=== PATIENT | female | born 1965 | race American Indian/Alaskan Native ===

== ENCOUNTER 2017-01-12 09:02 | Outpatient (CLI) | payer OTHER ==
--- NOTE | 2017-01-12 09:36 | XRay Report ---
CHEST 2 VIEWS INDICATION: Upper respiratory infection, smoker. COMPARISON: None similar. FINDINGS: PA and lateral chest radiographs demonstrate normal cardiomediastinal silhouette. Clear lungs. Intact bones. CONCLUSION: No acute disease in the chest. Thank you for the opportunity to participate in this patient's care.
== END 2017-01-12 09:03 | disposition home or self-care (01) ==
LOC: XRAY 09:02
PROVIDERS: ATTEND Family Medicine
DX: J06.9 Acute upper respiratory infection, unspecified (principal)
CPT/HCPCS: 71020

== ENCOUNTER 2017-02-24 15:38 | Outpatient (CLI) | payer OTHER ==
--- NOTE | 2017-02-25 08:33 | XRay Report ---
AP and lateral soft tissue the neck. History: Neck pain. Findings: The soft tissues are normal. There is narrowing of the disc spaces in the mid and lower cervical spine, most pronounced at C5-6 and C6-7. Mild anterior hypertrophic changes are noted. There no fractures or subluxations. Impression: Multilevel spondylosis. No soft tissue abnormalities.
--- NOTE | 2017-02-25 08:49 | XRay Report ---
AP lateral cervical spine. History: Pain. Findings: There is straightening of the lordotic curvature. Narrowing of the disc spaces is seen at C4-5 through C6-7 with minimal anterior hypertrophic changes. There is no prevertebral soft tissue edema. The odontoid is intact. Impression: No acute findings. Multilevel spondylosis.
--- NOTE | 2017-02-25 08:50 | XRay Report ---
LEFT SHOULDER: History: Left shoulder pain. Routine views demonstrate normal bony and soft tissue structures with normal joint alignment of the shoulder. IMPRESSION: Normal study.
== END 2017-02-24 15:39 | disposition home or self-care (01) ==
LOC: XRAY 15:38
PROVIDERS: ATTEND Family Medicine
DX: M47.812 Spondylosis without myelopathy or radiculopathy, cervical region (principal); M43.8X2 Other specified deforming dorsopathies, cervical region; M25.512 Pain in left shoulder
CPT/HCPCS: 70360; 72040

== ENCOUNTER 2019-04-26 16:09 | Emergency (ER) | payer OTHER ==
[2019-04-26 16:27] VITALS: BP 147/84
--- NOTE | 2019-04-26 16:27 | Event Note ---
ED Screening Note ED Screening Note: L ARM PAIN AND HAND SWELLING CIG PSH BREAST HYSTERECTOMY DAILY MEDS NONE POST MENOPAUSAL NO CP NO SOB NO TRAUMA NO NECK PAIN This initial assessment/diagnostic orders/clinical plan/treatment(s) is/are subject to change based on patients health status, clinical progression and re- assessment by fellow clinical providers in the ED. Further treatment and workup at subsequent clinical providers discretion. Patient/guardian urged not to elope from the ED as their condition may be serious if not clinically assessed and managed. Initial orders include:
--- NOTE | 2019-04-26 17:34 | XRay Report ---
LEFT HAND 4 VIEWS INDICATION / CLINICAL INFORMATION: Left hand pain and swelling. COMPARISON: None available. FINDINGS: BONES / JOINT(S): There is no evidence of fracture, dislocation or destructive lesion. No significant arthritis. SOFT TISSUES: There is mild generalized soft tissue swelling involving the middle finger. I do not id entify a radiopaque foreign body. ADDITIONAL FINDINGS: None. IMPRESSION: Generalized soft tissue swelling involving the middle finger without acute osseous abnorm ality. Signer Name: Alonzo Castrejon MD Signed: 04/26/2019 5:30 PM Workstation Name: [id number]
--- NOTE | 2019-04-26 17:46 | Emergency Department Report ---
ED Upper Extremity Inj HPI - General Chief Complaint: Extremity Problem,Nontraumatic Stated Complaint: LT HAND SWOLLEN Time Seen by Provider: 04/26/19 16:26 Source: patient Mode of arrival: Ambulatory Limitations: No Limitations - History of Present Illness Initial Comments: This is a 53-year-old male nontoxic, well nourished in appearance, no acute sig ns of distress presents to the ED with c/o of left 3rd finger pain and some swelling. Patient denies any trauma. Patient denies any numbness, tingling, fever, chills, nausea, vomiting, chest pain, shortness of breath, headache, stiff neck. Patient denies any joint swelling or joint redness. Patient denies decreased range of motion. Patient denies any allergies or significant past medical history. -: days(s) Other Extremity Injury: Fingers: Left Other Injuries: none Severity scale (0 -10): 8 Improves With: immobilization Worsens With: movement of extremity Associated Symptoms: denies other symptoms. denies: weakness, numbness, neck pain, suspects foreign body, nausea/vomiting, heard/felt popping sensat - Related Data Home Medications Medication Instructions Recorded Confirmed Last Taken PARoxetine MESYLATE [Brisdelle] 7.5 mg PO DAILY 11/06/14 11/14/14 11/12/14 Previous Rx's Medication Instructions Recorded Last Taken Type HYDROcodone/APAP 5-325 [Cecil 1 each PO Q6HR PRN #15 tablet 04/03/14 07/10/14 Rx 5/325 mg] Ibuprofen [Motrin 800 MG tab] 800 mg PO Q8H PRN #15 tablet 04/03/14 07/10/14 Rx Ibuprofen [Motrin] 600 mg PO Q6H PRN #30 tablet 11/15/14 Unknown Rx oxyCODONE /ACETAMINOPHEN [Percocet 2 tab PO Q4H PRN #30 tablet 11/15/14 Unknown Rx 5/325] PARoxetine MESYLATE [Brisdelle] 7.5 mg PO QDAY #30 capsule 11/16/14 Unknown Rx traMADol [Ultram 50 MG tab] 50 mg PO Q6HR PRN #45 tablet 11/16/14 Unknown Rx Acetaminophen/Codeine [Tylenol 1 tab PO Q6H PRN #12 tab 04/26/19 Unknown Rx /Codeine # 3 tab] Clindamycin [Clindamycin CAP] 300 mg PO Q8H #21 cap 04/26/19 Unknown Rx Naproxen [Naprosyn] 500 mg PO Q8H PRN #20 tablet 04/26/19 Unknown Rx Allergies Allergy/AdvReac Type Severity Reaction Status Date / Time No Known Allergies Allergy Verified 11/06/14 11:31 ED Review of Systems ROS: Stated complaint: LT HAND SWOLLEN Other details as noted in HPI Constitutional: denies: chills, fever Eyes: denies: eye pain, eye discharge, vision change ENT: denies: ear pain, throat pain Respiratory: denies: cough, shortness of breath, wheezing Cardiovascular: denies: chest pain, palpitations Endocrine: no symptoms reported Gastrointestinal: denies: abdominal pain, nausea, diarrhea Genitourinary: denies: urgency, dysuria, discharge Musculoskeletal: denies: back pain, joint swelling, arthralgia Skin: denies: rash, lesions Neurological: denies: headache, weakness, paresthesias Psychiatric: denies: anxiety, depression Hematological/Lymphatic: denies: easy bleeding, easy bruising ED Past Medical Hx - Past Medical History Previous Medical History?: No Hx Hypertension: No Hx Congestive Heart Failure: No Hx Diabetes: No Hx Asthma: No Hx COPD: No - Surgical History Past Surgical History?: Yes Hx Breast Surgery: Yes Additional Surgical History: Hysterectomy - Social History Smoking Status: Current Every Day Smoker Substance Use Type: Alcohol - Medications Home Medications: Home Medications Medication Instructions Recorded Confirmed Last Taken Type HYDROcodone/APAP 5-325 [Cecil 1 each PO Q6HR PRN #15 tablet 04/03/14 11/14/14 07/10/14 Rx 5/325 mg] Ibuprofen [Motrin 800 MG tab] 800 mg PO Q8H PRN #15 tablet 04/03/14 11/14/14 07/10/14 Rx PARoxetine MESYLATE [Brisdelle] 7.5 mg PO DAILY 11/06/14 11/14/14 11/12/14 History Ibuprofen [Motrin] 600 mg PO Q6H PRN #30 tablet 11/15/14 Unknown Rx oxyCODONE /ACETAMINOPHEN [Percocet 2 tab PO Q4H PRN #30 tablet 11/15/14 Unknown Rx 5/325] PARoxetine MESYLATE [Brisdelle] 7.5 mg PO QDAY #30 capsule 11/16/14 Unknown Rx traMADol [Ultram 50 MG tab] 50 mg PO Q6HR PRN #45 tablet 11/16/14 Unknown Rx Acetaminophen/Codeine [Tylenol 1 tab PO Q6H PRN #12 tab 04/26/19 Unknown Rx /Codeine # 3 tab] Clindamycin [Clindamycin CAP] 300 mg PO Q8H #21 cap 04/26/19 Unknown Rx Naproxen [Naprosyn] 500 mg PO Q8H PRN #20 tablet 04/26/19 Unknown Rx ED Physical Exam - General Limitations: No Limitations General appearance: alert, in no apparent distress - Head Head exam: Present: atraumatic, normocephalic - Extremities Exam Extremities exam: Present: normal inspection, full ROM, tenderness, normal capillary refill. Absent: joint swelling - Expanded Upper Extremity Exam Left General: Present: normal inspection Shoulder Exam: Present: normal inspection, full ROM. Absent: tenderness, swelling Upper Arm exam: Present: normal inspection, full ROM. Absent: tenderness, swelling Elbow exam: Present: normal inspection, full ROM. Absent: tenderness, swelling Forearm Wrist exam: Present: normal inspection, full ROM. Absent: tenderness, swelling Hand Wrist exam: Present: normal inspection, full ROM, tenderness, swelling, erythema. Absent: abrasion, laceration, ecchymosis, deformity, crepidus, dislocation, amputation, nail avulsion, subungual hematoma Vascular: Present: vascular compromise, normal capillary refill - Back Exam Back exam: Present: normal inspection, full ROM - Neurological Exam Neurological exam: Present: alert, oriented X3 - Psychiatric Psychiatric exam: Present: normal affect, normal mood - Skin Skin exam: Present: warm, dry, intact, normal color. Absent: rash - Other Other exam information: no joint stiffness. no joint pain. no joint swelling. no redness in that overlies the tendon. no trigger finger. ED Course Vital Signs 04/26/19 16:25 Temperature 97.4 F L Pulse Rate 74 Respiratory 15 Rate Blood Pressure 147/84 [Right] O2 Sat by Pulse 99 Oximetry - Reevaluation(s) Reevaluation #1: 04/26/19 17:46 Patient is speaking in full sentences with no signs of distress noted. ED Medical Decision Making - Medical Decision Making This is a 53-year-old female that presents with cellulitis. Patient is stable and was examined by me. There is no induration, fluctuance. No signs of abscess formation. There are no signs of tenosynovitis. I will discharge patient with clindamycin. Patient also has received information on tenosynovitis and to observe symptoms of symptoms does present and to return to emergency room as is possible. Vital signs are stable. Patient was referred to Follow-up with a Orthopedic doctor in 2 days or if symptoms worsen and continue return to emergency room as soon as possible. At time of discharge, the patient does not seem toxic or ill in appearance. No acute signs of distress noted. Patient agrees to discharge treatment plan of care. No further questions noted by the patient. Critical care attestation.: If time is entered above; I have spent that time in minutes in the direct care of this critically ill patient, excluding procedure time. ED Disposition Clinical Impression: Cellulitis of left middle finger Disposition: [id number] TO HOME OR SELFCARE Is pt being admited?: No Does the pt Need Aspirin: No Condition: Stable Instructions: Acetaminophen/Codeine (By mouth), Cellulitis (ED), Tenosynovitis (ED) Additional Instructions: Follow-up with a Orthopedic doctor in 2 days or if symptoms worsen and continue return to emergency room as soon as possible. Do not operate any machinery while taking Tylenol with codeine as this may cause drowsiness. Prescriptions: Clindamycin [Clindamycin CAP] 300 mg PO Q8H #21 cap Naproxen [Naprosyn] 500 mg PO Q8H PRN #20 tablet PRN Reason: Pain , Severe (7-10) Acetaminophen/Codeine [Tylenol /Codeine # 3 tab] 1 tab PO Q6H PRN #12 tab PRN Reason: Pain , Severe (7-10) Referrals: CLEMENTE WHALEN MD [Primary Care Provider] - 3-5 Days PRIMARY CARE, [Referring] - 3-5 Days ROBERTA COMBS MD [Staff Physician] - 04/28/19 Forms: Work/School Release Form(ED)
== END 2019-04-26 18:25 | disposition home or self-care (01) ==
LOC: ED 16:09
DX: L03.012 Cellulitis of left finger (principal); Z90.710 Acquired absence of both cervix and uterus; F17.200 Nicotine dependence, unspecified, uncomplicated; Z98.890 Other specified postprocedural states